=== PATIENT | male | born 1995 | race Caucasian/White ===

== ENCOUNTER 2023-11-26 13:27 | Emergency (ER) | payer OTHER, SELFPAY ==
[2023-11-26 13:34] VITALS: BP 132/82; PULSE 68; O2SAT 100
== END 2023-11-26 15:44 | disposition left against medical advice (07) ==
PROVIDERS: Emergency Provider Emergency Medicine
DX: Z53.21 Procedure and treatment not carried out due to patient leaving prior to being seen by health care provider (principal); R51.9 Headache, unspecified; R11.2 Nausea with vomiting, unspecified

== ENCOUNTER 2025-05-17 18:34 | Emergency (ER) | payer MEDICAID, SELFPAY ==
--- NOTE | ~2025-05-17 | XR_ITS ---
CLINICAL HISTORY: thumb wrist forearm pain 4 view right wrist Comparison: None provided Findings: Bones intact. No dislocations. No significant loss of joint space, osteophyte, or erosions. No radiopaque foreign body. IMPRESSION: 1. No acute fractures This document has been electronically signed by: Stephanie Lynn MD on 05/17/2025 19:37:43
--- NOTE | ~2025-05-17 | XR_ITS ---
CLINICAL HISTORY: thumb wrist forearm pain 3 view right hand Comparison: None provided Findings: No fractures or dislocations. No significant arthritic change. No erosions. No radiopaque foreign body. IMPRESSION: 1. No acute findings This document has been electronically signed by: Stephanie Lynn MD on 05/17/2025 19:40:31
--- NOTE | ~2025-05-17 | XR_ITS ---
CLINICAL HISTORY: thumb wrist forearm pain 2 view right forearm Comparison: None provided Findings: No fractures or dislocations. No joint effusion. No significant arthritic change. No radiopaque foreign body. IMPRESSION: 1. No acute fracture. This document has been electronically signed by: Stephanie Lynn MD on 05/17/2025 20:08:42
[2025-05-17 18:39] VITALS: BP 128/69; PULSE 79; RESP 16; TEMP 36.3; O2SAT 98; BMI 23.0
--- NOTE | 2025-05-17 20:26 | ED_ITS ---
HPI - Extremity Problem General Chief complaint: Extremity Injury, Upper Stated complaint: right hand, arm & wrist injury (pain) Time Seen by Provider: 05/17/25 20:26 Source: patient Mode of arrival: ambulatory Limitations: no limitations History of Present Illness ED Provider: Nury Farias PA-C HPI Narrative: Patient here for right sided wrist and thumb pain x 1 day. He is left hand d ominant. Patient works as an sales associate he has not reported this as a work- related injury but does use his right and left temporal equally with his job description he does lot of repetitive gripping and work with his hands. He denies any falls or trauma. He denies any paresthesias. Pain starts in his right thumb it travels up his right lateral forearm. He went to go grab an object today such as a sign of reported that it made it worse. He has not noticed any skin changes. He does not recall this ever happened to him before in the past and he has worked in this type of position for about 10 years now. He has not tried to treat in any way. MD Complaint: extremity pain Related Data Allergies Allergy/AdvReac Type Severity Reaction Status Date / Time No Known Allergies Allergy Ver[facility] 05/17/25 18:43 [facility] Social History Social History Advance Directives: No Advance Directives Information Provided: No Do you have a plan to hurt others: No Plan Physical Exam Exam: Exam: General: Appears in no acute distress, appears well-nourished body habitus is normal, appears stated age. No septic or ill-appearing. Vitals were reviewed as normal, and PMH/Social and Surgical hx was reviewed, including allergies and current medications. Head: Normocephalic, no obvious trauma or skin lesions noted. Eyes: EOMI ENMT: moist oral mucosa Neck: trachea midline Cardiovascular: peripheral perfusion normal, Regular heart rate, regular rhythm Respiratory: no respiratory distress Abdomen: non-distended Extremities: warm and moving without difficulty with exception of RUE. + finklestein test, nonspecific bony tenderness, mild soft tissue swelling, no ecchymosis, referral clerk strengh 4+ throughout, able to perform finger opposition and make the okay sign, DTRs intact, neg spurling test b/l. Psych: Cooperative Neuro: Alert and oriented. Vital Signs: Vital Signs: Last Vital Signs Temp 97.3 F 05/17/25 21:00 Pulse 79 10/08/25 21:00 Resp 16 05/17/25 21:00 BP 128/69 05/17/25 21:00 Pulse Ox 98 05/17/25 21:00 O2 Del Method Room Air 05/17/25 21:00 BMI result Body Mass Index 23.0 Medical Decision Making Medical Decision Making MDM Narrative: Patient presents to ED today for evaluation of right sided forearm and thumb pain . [place] is repetitive use. This is likely work related. H and P as above. Patient is afebrile with stable vitals and well-appearing. ?History and physical as stated above. ?Patient is neurovascular intact in the affected extremity. ?X-rays were obtained to further evaluate. At this time no evidence of NVC to warrant further work up/ intervention or consult. They show no acute fractures. ?Patient's symptoms are consistent with tenosynovitis. ?Patient?s right upper extremity?was placed in an mansoor wrap. ?Discussed icing it, elevating and alternating ibuprofen and Tylenol for discomfort. ?Discussed that there is no significant improvement in the next 1 to 2 weeks to follow-up with an ?orthopedic clinic, information given. Discussed symptomatic treatment with the patient. ?Discussed return precautions. ?Patient verbalized understanding of the above plan and is in agreement with the above plan. ?The patient was discharged home in stable condition with return precautions. Differential Diagnosis Differential Diagnoses: The differential diagnosis associated with the presentation includes tenosynovitis strain fracture Admission/Observation Consideration of admission/observation: Escalation of care including admission/observation considered Independent Interpretation I performed an independent interpretation of an: Plain X-Ray Interpretation: hand, wrist and right forearm without dislocation or fracture Radiology Impression Discussion of test interpretation with radiology: I have reviewed the radiologist's reading. Radiologist Impression: same as preliminary read Independent Historian Clinical information obtained from an independent historian. History obtained from or confirmed by: Spouse Prescription Management I considered prescription management with: Pain Medication Social Determinants Patient?s care significantly limited by Social Determinants of Health including: Other Social Determinant of Health Critical Care Time Critical Care Time Critical Care Time: No Discharge Plan Discharge Clinical Impression: Synovitis and tenosynovitis of right forearm Patient Disposition: Home, Self-Care Instructions: Tenosynovitis (ED) Additional Instructions: You were evaluated for pain in your right wrist/ thumb and forearm.? History and physical is most consistent with tenosynovitis vs traumatic injur. Xray are unremarkable for break or dislocation. There is no infection as there are no severe bony point tenderness, erythema, warmth, swelling.? Strength and range of motion are intact and neurovascularly intact. Diagnosis: You have been diagnosed with tenosynovitis, a condition that causes inflammation and irritation of the tendons in your thumb and forearm. Initial Treatment: Take the [id number]-osdeeeo anti-inflammatory that you are not allergic to as directed. This medication will help reduce inflammation and relieve symptoms. Rest your affected hand and avoid activities that aggravate the symptoms. Use a wrist/ forearm support or brace to provide stability and support to the affected area. Do not sleep with this Mansoor wrap on at nighttime Perform gentle stretching exercises for your thumb and wrist as instructed by your healthcare provider. Refractory symptoms: If symptoms do not improve in 14 to 21 days with conservative therapy and anti- inflammatory medications, please return to be reevaluatde as you may need cortisone injections. Symptom Management: Apply ice packs to the affected area for 15-20 minutes, several times a day, to reduce pain and swelling. Take [id number] pain relievers, such as ibuprofen or acetaminophen, as needed for pain relief. Follow the recommended dosage instructions. Activity Modification: Avoid repetitive movements and activities that strain the thumb and wrist. Modify your daily activities to minimize stress on the affected hand Prognosis: With appropriate treatment and adherence to the recommended measures, most cases of De Quervain's tenosynovitis improve within a few weeks. It is important to follow the prescribed treatment plan and make necessary lifestyle modifications to support healing and prevent recurrence. Follow-up: If your symptoms do not improve or worsen after 7 to 10 days of initial treatmen t, please schedule a reevaluation with your healthcare provider. Your healthcare provider may consider a cortisone injection as a next step if conservative measures are ineffective. Referrals: [facility] [Provider Group, Orthopedics] Referral Note: tenosynovitis Stand Alone Forms: Work/School Release Interventions: ED Discharge Assessment Last Done: 05/17/25 21:00 Discharge Date/Time: 05/17/25 21:01 Print Language: Serbian
[2025-05-17 21:00] VITALS: BP 128/69; PULSE 79; RESP 16; TEMP 36.3; O2SAT 98
== END 2025-05-17 21:01 | disposition home or self-care (01) ==
PROVIDERS: Emergency Provider Emergency Medicine Emergency Medical Services
DX: M65.931 Unspecified synovitis and tenosynovitis, right forearm (principal)
CPT/HCPCS: 73090; 73110; 73130; 99282; 99283

== ENCOUNTER → 2025-05-17 19:01 | Outpatient (BNV) | payer OTHER, SELFPAY | PROVIDERS: Visit Provider Student in an Organized Health Care Education/Training Program | DX: M79.641 Pain in right hand (principal); M25.531 Pain in right wrist; M79.631 Pain in right forearm | CPT/HCPCS: 73090; 73110; 73130 ==